=== PATIENT | female | born 1960 | race Caucasian/White ===

== ENCOUNTER 2021-11-13 09:58 | Emergency (ER) | payer BC, OTHER ==
[2021-11-13] MEDS ORDERED: Sodium Chloride 0.9% 10 ML Syringe FLUSH PRN (10:49)
[2021-11-13] MEDS ORDERED: HYDROmorphone 1 MG/ML Syringe IVPUSH ONE (10:49)
[2021-11-13] MEDS ORDERED: Propofol 200 MG/20 ML SDV IVPUSH ONE (11:39)
[2021-11-13] MEDS ORDERED: Ketorolac 30 MG/ML SDV IVPUSH ONE (12:59)
[2021-11-13] MEDS ORDERED: Acetaminophen/HYDROcodone 325-5 MG Tab PO ONE (13:00)
== END 2021-11-13 14:15 | disposition home or self-care (01) ==
LOC: JD.ED 09:58
DX: S52.501A Unspecified fracture of the lower end of right radius, initial encounter for closed fracture (principal); S52.601A Unspecified fracture of lower end of right ulna, initial encounter for closed fracture; Z88.5 Allergy status to narcotic agent; W18.30XA Fall on same level, unspecified, initial encounter; Y99.0 Civilian activity done for income or pay
CPT/HCPCS: 25565; 73100; 96374; 96375; 99152; 99283; A9270; J1170; J1885; J2704; J3490; 25505

== ENCOUNTER 2025-06-24 07:50 | Day surgery (SDC) | payer OTHER ==
[2025-06-24] MEDS: Lactated Ringers 1,000 ML IV SCH (07:45)
[~2025-06-24 07:50] MED LIST: Ketorolac 30 MG/ML SDV ONE; Propofol 200 MG/20 ML SDV ONE; Sodium Chloride 0.9% 10 ML Syringe FLUSH PRN; Sodium Chloride 0.9% 10 ML Syringe FLUSH SCH; propofoL 500 MG/50 ML 50 ML ONE
[2025-06-24] MEDS ORDERED: fentaNYL 250 MCG/5 ML SDV ONE (07:52)
[2025-06-24] MEDS ORDERED: dexmedeTOMIDine HCl 200 MCG/2 ML SDV ONE (07:52)
[2025-06-24] MEDS ORDERED: Ondansetron 4 MG/2 ML SDV ONE (08:16)
[2025-06-24] MEDS ORDERED: Dexamethasone 4 MG/ML 5 ML MDV ONE (08:16)
[2025-06-24] MEDS ORDERED: Ondansetron 4 MG/2 ML SDV IVPUSH PRN (09:07)
[2025-06-24] MEDS ORDERED: fentaNYL 100 MCG/2 ML SDV IVPUSH PRN (09:07)
[2025-06-24] MEDS ORDERED: EPINEPHrine 1 MG/ML SDV ONE (11:27)
== END 2025-06-24 10:40 | disposition home or self-care (01) ==
LOC: JD.SDS 07:50
PROVIDERS: ATTEND Orthopaedic Surgery
DX: S83.241A Other tear of medial meniscus, current injury, right knee, initial encounter (principal); E03.9 Hypothyroidism, unspecified; F17.210 Nicotine dependence, cigarettes, uncomplicated; F41.9 Anxiety disorder, unspecified; Z79.899 Other long term (current) drug therapy; X58.XXXA Exposure to other specified factors, initial encounter
CPT/HCPCS: 29881; J0169; J0665; J0690; J1100; J1885; J2405; J2704; J3010; J7120; J1171